=== PATIENT | male | born 1950 | race Caucasian/White ===

== ENCOUNTER 2024-05-28 23:30 | Inpatient (IN) | payer MEDICARE, MEDICAID ==
[~2024-05-28] VITALS: Ht 167.6 cm; Wt 71.9 kg
[2024-05-28 23:48] LABS: BASOPHILS % 0.6 % (0.0-2.0); EOSINOPHILS % 2.4 % (0.0-5.0); HEMATOCRIT. 37.2 % (42.0-52.0); HEMOGLOBIN. 12.7 g/dL (14.0-18.0); LYMPHOCYTES % 41.8 % (20.0-50.0); MEAN CORPUSCULAR HEMOGLOBIN 32.1 pg (28.0-32.0); MEAN CORPUSCULAR HGB CONC 34.1 g/dL (31.0-37.0); MEAN CORPUSCULAR VOLUME 94.3 fL (80.0-94.0); MEAN PLATELET VOLUME 7.6 fl (7.4-10.4); NEUTROPHILS % 43.2 % (40.0-76.0); PLATELET 237 x1000/uL (130-400); RED BLOOD CELL COUNT 3.95 mill/uL (4.7-6.1)
[2024-05-28 23:57] LABS: CHLORIDE 111 mEq/L (98-107); POTASSIUM 4.2 mEq/L (3.5-5.1); SODIUM 142 mEq/L (136-145)
[2024-05-28 23:58] LABS: CARBON DIOXIDE 29 mEq/L (21-32)
[2024-05-28 23:59] LABS: CALCIUM 9.6 mg/dL (8.7-10.4)
[2024-05-29 00:03] LABS: CREATININE 1.1 mg/dL (0.6-1.3); INR 0.9; PARTIAL THROMBOPLASTIN TIME 22.2 sec (23.4-31.0); PROTHROMBIN TIME 10.6 sec (9.6-11.0)
[2024-05-29 00:04] LABS: UREA NITROGEN BLOOD 20 mg/dL (9-23)
[2024-05-29 00:05] LABS: TROPONIN I HIGH SENSITIVITY 20 ng/L (3.0-53)
[2024-05-29 01:10] LABS: ETHANOL BLOOD < 10 mg/dL (<10); GLUCOSE 112 mg/dL (70-105)
[2024-05-29 03:28] LABS: *AMPHETAMINES SCREEN URINE NEGATIVE (NEGATIVE); *BARBITURATES SCREEN URINE NEGATIVE (NEGATIVE); *BENZODIAZEPINES SCREEN URINE NEGATIVE (NEGATIVE); *COCAINE SCREEN URINE NEGATIVE (NEGATIVE); CANNABINOID URINE SCREEN NEGATIVE (NEGATIVE); METHADONE URINE SCREEN NEGATIVE (NEGATIVE); OPIATES URINE SCREEN NEGATIVE (NEGATIVE); PHENCYCLIDINE URINE SCREEN NEGATIVE (NEGATIVE)
[2024-05-29 03:29] LABS: ECSTASY MDMA SCREEN URINE NEGATIVE (NEGATIVE)
[2024-05-29 04:45] LABS: CLARITY URINE CLEAR (CLEAR); COLOR URINE YELLOW (YELLOW); PROTEIN URINE NEGATIVE (NEGATIVE); SPECIFIC GRAVITY URINE 1.036 (1.005-1.030)
[2024-05-29 04:46] LABS: GLUCOSE URINE 3+ (NEGATIVE); KETONES URINE NEGATIVE (NEGATIVE); LEUKOCYTE ESTERASE URINE NEGATIVE (NEGATIVE); NITRITE URINE NEGATIVE (NEGATIVE); OCCULT BLOOD URINE NEGATIVE (NEGATIVE)
[2024-05-29 05:46] LABS: RBC URINE NONE SEEN /hpf (0-2); WBC URINE 0-2 /hpf (0-2)
[2024-05-29 05:47] LABS: BACTERIA URINE NONE SEEN; SQUAMOUS EPITHELIAL CELL URINE NONE SEEN /lpf (RARE/1+)
[2024-05-29] MEDS ORDERED: ACETAMINOPHEN 325MG TABLET PO PRN (09:00)
[2024-05-29] MEDS ORDERED: ONDANSETRON HCL 4MG/2ML INJ IV PRN (09:00)
[2024-05-29] MEDS ORDERED: GUAIFENESIN 200MG/10ML SUGAR FREE UDC PO PRN (09:00)
[2024-05-29] MEDS ORDERED: DOCUSATE SODIUM 100MG CAPSULE PO PRN (09:00)
[2024-05-29] MEDS ORDERED: MAGNESIUM/ALUMINUM HYDROXIDE/SIMETHICONE 30ML UDC PO PRN (09:00)
[2024-05-29] MEDS ORDERED: IPRATROPIUM/ALBUTEROL 0.5-3(2.5)MG/3ML NEB HHN PRN (09:00)
[2024-05-29 09:22] VITALS: BP 133/94; PULSE 72; RESP 19; TEMP 36.00288; O2SAT 98
[2024-05-29 09:47] VITALS: BP 133/94; PULSE 72; RESP 19; TEMP 36.0288
[2024-05-29] MEDS: ENOXAPARIN 40MG/0.4ML SYR SUBCUT SCH (11:17)
[2024-05-29 12:00] VITALS: BP 166/78; PULSE 80; RESP 18; TEMP 36.16956; O2SAT 100
[2024-05-29] MEDS ORDERED: METO-385 PO (14:04)
[2024-05-29] MEDS ORDERED: MULT-1146 PO (14:04)
[2024-05-29] MEDS ORDERED: ERGO2000 (14:04)
[2024-05-29] MEDS ORDERED: EMPA1TAB32 (14:04)
[2024-05-29] MEDS ORDERED: LIP40 PO (14:04)
[2024-05-29] MEDS ORDERED: ERGO1250 (14:04)
[2024-05-29] MEDS ORDERED: BREX3TAB PO (14:04)
[2024-05-29] MEDS ORDERED: LOSA-415 PO (14:04)
[2024-05-29] MEDS ORDERED: CLOP-31 PO (14:04)
[2024-05-29] MEDS ORDERED: AMLO10TA4 PO (14:04)
[2024-05-29] MEDS ORDERED: ASPI-1497 PO (14:04)
[2024-05-29] MEDS ORDERED: ROSU40TA PO (14:04)
[2024-05-29] MEDS ORDERED: GABA-532 PO (14:04)
[2024-05-29] MEDS ORDERED: IBUP-2029 PO (14:04)
[2024-05-29 15:42] VITALS: BP 153/77; PULSE 79; RESP 18; TEMP 36.114; O2SAT 98
[2024-05-29 16:45] LABS: TROPONIN I HIGH SENSITIVITY 20 ng/L (3.0-53)
[2024-05-29 17:33] LABS: CHLORIDE 111 mEq/L (98-107); POTASSIUM 3.8 mEq/L (3.5-5.1); SODIUM 142 mEq/L (136-145)
[2024-05-29 17:34] LABS: CALCIUM 9.1 mg/dL (8.7-10.4); CARBON DIOXIDE 25 mEq/L (21-32)
[2024-05-29 17:39] LABS: CREATININE 0.8 mg/dL (0.6-1.3); GLUCOSE 117 mg/dL (70-105); UREA NITROGEN BLOOD 19 mg/dL (9-23)
[2024-05-29 17:41] LABS: ALANINE AMINOTRANSFERASE 24 IU/L (10-49); ASPARTATE AMINOTRANSFERASE 29 IU/L (<34); PROTEIN TOTAL 6.7 g/dL (6.0-8.3)
[2024-05-29 17:42] LABS: BILIRUBIN TOTAL 0.5 mg/dL (0.1-1.0)
[2024-05-29 19:28] LABS: BASOPHILS % 0.5 % (0.0-2.0); HEMATOCRIT. 40.2 % (42.0-52.0); HEMOGLOBIN. 13.1 g/dL (14.0-18.0); LYMPHOCYTES % 35.1 % (20.0-50.0); MEAN CORPUSCULAR HEMOGLOBIN 31.3 pg (28.0-32.0); MEAN CORPUSCULAR HGB CONC 32.7 g/dL (31.0-37.0); MEAN CORPUSCULAR VOLUME 95.9 fL (80.0-94.0); MONOCYTES % 9.8 % (2.0-8.0); NEUTROPHILS % 52.6 % (40.0-76.0); PLATELET 217 x1000/uL (130-400); RED BLOOD CELL COUNT 4.19 mill/uL (4.7-6.1); RED CELL DISTRIBUTION WIDTH 14.2 % (11.6-14.6); WHITE BLOOD COUNT 7.3 x1000/uL (4.5-11.0)
[2024-05-29 20:00] VITALS: BP 155/82; PULSE 93; RESP 22; TEMP 36.44736; O2SAT 99
[2024-05-29] MEDS: ACETAMINOPHEN 325MG TABLET PO PRN (21:17)
[2024-05-30] VITALS (9 sets, daily range): BP systolic 118–180; BP diastolic 67–89; PULSE 67–80; RESP 18–19; TEMP 36.22512–36.72516; O2SAT 18–100
[2024-05-30] MEDS: CLONIDINE 0.1MG TABLET PO PRN (00:50)
[2024-05-30 01:49] LABS: TROPONIN I HIGH SENSITIVITY 21 ng/L (3.0-53)
[2024-05-30 08:21] LABS: CALCIUM 9.1 mg/dL (8.7-10.4); CARBON DIOXIDE 25 mEq/L (21-32); CHLORIDE 109 mEq/L (98-107); POTASSIUM 3.9 mEq/L (3.5-5.1); SODIUM 141 mEq/L (136-145)
[2024-05-30 08:22] LABS: BASOPHILS % 0.6 % (0.0-2.0); EOSINOPHILS % 2.7 % (0.0-5.0); HEMATOCRIT. 35.9 % (42.0-52.0); HEMOGLOBIN. 11.9 g/dL (14.0-18.0); LYMPHOCYTES % 37.2 % (20.0-50.0); MEAN CORPUSCULAR HEMOGLOBIN 31.5 pg (28.0-32.0); MEAN CORPUSCULAR VOLUME 95.4 fL (80.0-94.0); MEAN PLATELET VOLUME 8.3 fl (7.4-10.4); NEUTROPHILS % 48.5 % (40.0-76.0); PLATELET 198 x1000/uL (130-400); RED BLOOD CELL COUNT 3.76 mill/uL (4.7-6.1); RED CELL DISTRIBUTION WIDTH 13.9 % (11.6-14.6); WHITE BLOOD COUNT 5.4 x1000/uL (4.5-11.0)
[2024-05-30 08:26] LABS: CREATININE 0.8 mg/dL (0.6-1.3); GLUCOSE 118 mg/dL (70-105)
[2024-05-30 08:27] LABS: LDL CHOLESTEROL 69 mg/dL (5-100); TRIGLYCERIDE 129 mg/dL (0-150); UREA NITROGEN BLOOD 20 mg/dL (9-23)
[2024-05-30 08:28] LABS: CHOLESTEROL 115 mg/dL (<200); THYROID STIMULATING HORMONE 1.73 uIU/mL (0.55-4.78)
[2024-05-30 08:29] LABS: HDL CHOLESTEROL 34 mg/dL (>55)
[2024-05-30] MEDS: ASPIRIN 81MG TABLET PO SCH (09:07)
[2024-05-30] MEDS: CLOPIDOGREL 75MG TABLET PO SCH (09:07)
[2024-05-30] MEDS: PANTOPRAZOLE SODIUM 40 MG/VIAL IV SCH (10:08)
[2024-05-30] MEDS ORDERED: IOHEXOL-350 100 ML BOTTLE ONE (13:42)
[2024-05-31] VITALS: BP_SYST 177; BP_SYST 178; BP_DIAS 85; BP_DIAS 93; PULSE 112; PULSE 85; RESP 19; RESP 20; TEMP 36.72516; TEMP 36.9474; O2SAT 100; O2SAT 99
[2024-05-31 01:53] LABS: CREATINE KINASE MB FRACTION 1.8 ng/mL (0.5-3.6)
[2024-05-31 04:00] VITALS: BP 161/79; PULSE 75; RESP 18; TEMP 36.72516; O2SAT 98
[2024-05-31 06:49] LABS: CREATINE KINASE MB FRACTION 1.5 ng/mL (0.5-3.6)
[2024-05-31 08:00] VITALS: BP_SYST 123; BP_SYST 142; BP_DIAS 45; BP_DIAS 70; PULSE 67; PULSE 70; RESP 17; TEMP 36.28068; TEMP 36.72516; O2SAT 97; O2SAT 98
[2024-05-31 11:44] LABS: CREATINE KINASE MB FRACTION 1.8 ng/mL (0.5-3.6)
[2024-05-31 12:00] VITALS: BP 142/80; PULSE 80; RESP 16; TEMP 36.55848; O2SAT 95
[2024-05-31 16:00] VITALS: BP 157/73; PULSE 79; RESP 18; TEMP 36.16956; O2SAT 97
[2024-05-31 18:06] VITALS: BP 152/73; PULSE 79; TEMP 97.7; O2SAT 97
[2024-06-01] MEDS ORDERED: FAMOTIDINE 20MG/2ML VIAL IV SCH (09:00)
== END 2024-05-31 20:06 | disposition home or self-care (01) | DRG 303 ==
LOC: ER 23:30 → 7EST 05-29 02:25 → EDBEDREQTM 05-29 02:33 → EDBEDREQ 05-29 02:33 → 7EST 05-29 09:55
PROVIDERS: ADMIT Internal Medicine; ATTEND Internal Medicine
DX: I25.110 Atherosclerotic heart disease of native coronary artery with unstable angina pectoris (principal); D64.9 Anemia, unspecified; I10 Essential (primary) hypertension; E11.9 Type 2 diabetes mellitus without complications; E78.00 Pure hypercholesterolemia, unspecified; Z79.02 Long term (current) use of antithrombotics/antiplatelets; Z79.82 Long term (current) use of aspirin; Z86.73 Personal history of transient ischemic attack (TIA), and cerebral infarction without residual deficits; Z98.61 Coronary angioplasty status
CPT/HCPCS: 36415; 71045; 71275; 80048; 80053; 80061; 80305; 80320; 81003; 82550; 82553; 83036; 83880; 84443; 84484; 85025; 85379; 93005; 93306; 99285; J1650; J2470; Q9967; G0480